=== PATIENT | male | born 1970 | race Caucasian/White ===

== ENCOUNTER → 2020-07-02 14:09 | Outpatient (CLI) | payer BC, SELFPAY ==
--- NOTE | 2020-07-02 14:13 | MR_ITS ---
PROCEDURE: MR SHOULDER RT WO CON CLINICAL INDICATION: RT SHOULDER PAIN Pt c/o rt shoulder pain and limited rom since injury at work 2 years ago. Pt states he was swinging a metal pipe when he hurt his rt shoulder. COMPARISON: No exams were available for comparison TECHNIQUE: Routine multiplanar multi echo sequences are performed without gadolinium enhancement. FINDINGS: No evidence of rotator cuff tear. The supraspinatus, infraspinatus, teres minor, and subscapularis tendons appear intact mild subacromial narrowing at 5 mm. No fracture or dislocation. No bone bruise apparent. Minimal bone marrow edema at the AC joint. Bicipital tendon is in place. Small amount fluid is present in the bicipital tendon sheath. Sublabral recess noted. IMPRESSION: 1. No evidence of rotator cuff tear. 2. Small amount fluid in the bicipital tendon sheath which may be seen with tenosynovitis. 3. Mild amount of edema noted at the AC joint suggesting some underlying inflammatory change. Dictated by: Singh Turner MD 07/04/2020 09:34 Singh Turner MD in [place] 07/04/2020 09:34
== END ==
PROVIDERS: PCP Nurse Practitioner Family; Visit Provider Nurse Practitioner Family
DX: M25.511 Pain in right shoulder (principal)
CPT/HCPCS: 73221

== ENCOUNTER → 2020-10-08 10:49 | Outpatient (CLI) | payer BC, SELFPAY ==
--- NOTE | 2020-10-08 10:55 | XR_ITS ---
PROCEDURE: XR KNEE LT 3V CLINICAL INDICATION: PAIN IN UNSPECIFIED KNEE COMPARISON: No exams were available for comparison FINDINGS: No fracture or dislocation. No lytic or blastic change. There is normal mineralization. The joint spaces are well-preserved. No significant degenerative/arthritic changes. No erosive changes evident. Other findings:No significant soft tissue abnormality. No suprapatellar joint effusion. IMPRESSION: No acute findings. Dictated by: Alison Crabtree 10/08/2020 11:19 Alison Crabtree in [place] 10/08/2020 11:19
--- NOTE | 2020-10-08 10:55 | XR_ITS ---
PROCEDURE: XR KNEE RT 3V CLINICAL INDICATION: PAIN IN UNSPECIFIED KNEE COMPARISON: No exams were available for comparison FINDINGS: No acute fractures or dislocations. Bone density is normal. Mild medial compartment joint space loss. No suprapatellar joint effusion. Small fabella is noted. Soft tissues are unremarkable. IMPRESSION: No acute abnormality. Mild medial compartment joint space loss. Dictated by: Alison Crabtree 10/08/2020 11:18 Alison Crabtree in [place] 10/08/2020 11:18
== END ==
PROVIDERS: PCP Nurse Practitioner Family; Visit Provider Nurse Practitioner Family
DX: M25.562 Pain in left knee (principal); M25.561 Pain in right knee
CPT/HCPCS: 73562

== ENCOUNTER 2023-09-15 09:29 | Day surgery (SDC) | payer MEDICAID, SELFPAY ==
[2023-09-14 08:55] VITALS: BMI 32.5
[2023-09-15] MEDS: LACTATED RINGERS 1000ML 1,000 ML 25 ML IV (10:15)
[2023-09-15 10:19] VITALS: BP 142/73; PULSE 60; RESP 18; TEMP 36.7; O2SAT 98; BMI 32.5
--- NOTE | 2023-09-15 12:13 | P.PNANES_ITS ---
[facility] Disclaimer: The information contained in this section may have been updated after the patient was seen, as this information can be updated by other users. Medical History Sleep apnea Osteoarthritis Eczema History of gastroesophageal reflux (GERD) History of left heart catheterization (LHC) Surgical History History of colonoscopy Family History Other No significant family history Social History Smoking Status: Current every day smoker tobacco type: cigarettes packs per day: 1 alcohol intake: never substance use type: denies use current occupational status: employed Travel in the last 8 weeks: None household members: spouse caffeine: Yes physical activity: none do you feel safe at home: Yes victim of physical abuse: No victim of emotional abuse: No victim of sexual abuse: No would you like helpful sources: No [facility] Anesthesia Checklist Patient Identification Patient Identification: Arm Band, Family and Verbal (Name & ) Structural Data Admitted From: Home Planned Operative Procedure/s: Colonoscopy Consent for Planned Operative Procedure(s) Verified: Yes Verified Documents: Surgical Consent and History and Physical NPO Status Verified Time NPO: 05:00 Chart Verification Results Verified: None (None on chart) Additional verifications Patient : No Anesthesia Reactions: No Hx Blood Transfusions: No Blood Transfusion Reaction: No Previous Colonoscopy: Yes Cardiovascular Assessment Heart Sounds: S1 & S2 Pulse Rhythm: Irregular Peripheral Edema: No Airway Assessment Mallampati Score:: Class II C-Spine Mobility Assessed: Yes (FROM) TMJ Mobility Assessed: Yes Dentition: Good Dentition (Nothing loose per pt.) Neurological Assessment Level of Consciousness: Awake, Alert, Appropriate and Follows Commands Hx Seizures: No Numbness or tingling in extremities: No Anesthesia Plan Anesthesia Risk discussed: Yes Anesthesia Plan: Verified ASA Class: III Anesthesia Type: MAC
[2023-09-15 12:17] VITALS: O2SAT 98
--- NOTE | 2023-09-15 12:45 | P.PCN_ITS ---
Procedure: Date: 09/15/23 Patient Date of :: 1970 Procedure Performed:: Colonoscopy Indications:: The patient is a 53-year-old who presents for surveillance colonoscopy for history of adenomatous polyps in the past Performing Provider:: Fredy Calles MD Referring Provider:: Veronica Lucas APRN Sedation:: See RN records Procedure:: After placing the patient in the left lateral decubitus position, the colon oscopy was gently inserted into the rectum and under direct visualization advanced to the cecum which was identified by transillumination in the right lower quadrant, identification of the ileocecal valve, appendiceal orifice, and cecal strap. Color, texture, mucosa, and anatomy of the colon were carefully examined with the scope. Findings:: The quality of the bowel preparation was fair to poor in the cecum and ascending colon (characterized by thicker brown substance adherent to mucosa that would not completely irrigate off). There was a medium sized polyp (7 to 9 mm) in the distal transverse colon. The polyp was sessile. The polyp was removed with a cold snare polypectomy. The polyp was resected and retrieved. There were 3 small polyps of the sigmoid colon (4 to 6 mm). The polyps were sessile. The polyps were removed with cold snare polypectomy. The polyps were resected but not all polyps were retrieved. There were 3 diminutive polyps in the rectum. The polyps were sessile. The polyps were removed with a cold forceps. On retroflexion view of the rectum internal hemorrhoids were seen. Colon spasms were noted in the left colon. Impression: Polyp of transverse colon Polyps of sigmoid colon Polyps of rectum Recommendations:: Await pathology results Repeat colonoscopy in 1 year with 2 days liquid diet and extended bowel preparation Complications:: None Estimated blood obtained (mL): 0 Colonoscopy Component Colonoscopy Component Was a colonoscopy performed during today's procedure?: Yes Recommended follow up colonoscopy of at least 10 years?: Yes
[2023-09-15 12:47] VITALS: BP 102/62; PULSE 56; RESP 18; TEMP 36.6; O2SAT 91
[2023-09-15 12:57] VITALS: BP 127/70; PULSE 66; RESP 18; O2SAT 94
[2023-09-15 13:07] VITALS: BP 129/83; PULSE 57; RESP 16; O2SAT 96
[2023-09-15 13:17] VITALS: BP 148/92; PULSE 52; RESP 16; O2SAT 98
== END 2023-09-15 13:20 | disposition home or self-care (01) ==
PROVIDERS: PCP Nurse Practitioner Family; Visit Provider Internal Medicine
PROC: 0DJD8ZZ Inspection of Lower Intestinal Tract, Via Natural or Artificial Opening Endoscopic (ICD-10-PCS; CPT 45378; principal; 2023-09-15 11:00)
DX: Z86.010 Personal history of colon polyps (principal); Z12.11 Encounter for screening for malignant neoplasm of colon; D12.5 Benign neoplasm of sigmoid colon; D12.3 Benign neoplasm of transverse colon; D12.8 Benign neoplasm of rectum
CPT/HCPCS: 45385; 45380; J2704; J7120